=== PATIENT | female | born 1950 | race Caucasian/White ===

== ENCOUNTER → 2017-03-25 | Outpatient (CLI) | payer MEDICARE, OTHER ==
--- NOTE | 2017-03-25 17:05 | RADIOLOGY REPORT (SQ) ---
EXAM DESCRIPTION: LUMBAR SPINE COMPLETE COMPLETED DATE/TIME: 03/25/2017 4:51 pm REASON FOR STUDY: LOW BACK PAIN M54.5 LOW BACK PAIN COMPARISON: None. NUMBER OF VIEWS: Five views including obliques. TECHNIQUE: AP, lateral, oblique, and sacral radiographic images acquired of the lumbar spine. LIMITATIONS: None. FINDINGS: MINERALIZATION: Osteoporotic SEGMENTATION: Normal. No transitional anatomy. ALIGNMENT: Convex rightward lumbar curvature. VERTEBRAE: Maintained height. No fracture or worrisome bone lesion. DISCS: Disc space loss of height at L2-3, L3-4, L4-5 and L5-S1 POSTERIOR ELEMENTS: Advanced bilateral facet arthropathy at L3-4, L4-5, and L5-S1. HARDWARE: None in the spine. PARASPINAL SOFT TISSUES: Normal. PELVIS: Bilateral SI joint sclerosis and vacuum phenomenon OTHER: No other significant finding. IMPRESSION: Diffuse degenerative changes as above TECHNICAL DOCUMENTATION: JOB ID: [id number] [employer]- All Rights Reserved
== END ==
LOC: OD 16:28
PROVIDERS: ATTEND Pain Medicine Pain Medicine
DX: M54.5 Low back pain (principal)
CPT/HCPCS: 72110